=== PATIENT | male | born 1955 | race Caucasian/White ===

== ENCOUNTER → 2016-08-20 | Outpatient (CLI) | payer BC, OTHER ==
[~2016-08-20] MED LIST: /MOXI40TA; /QUIN10TA; ALLOPURINAL; BACT800T; KEFLEX; METF500T4; METO50TA4; PERC7.5T8; PRED10TA2; VICO5TAB; ZYLO300T
== END ==
LOC: M LAB 06:11
PROVIDERS: ATTEND Nurse Practitioner Adult Health
DX: Z85.46 Personal history of malignant neoplasm of prostate (principal)

== ENCOUNTER → 2016-11-21 | Outpatient (CLI) | payer BC, OTHER ==
[2016-11-21 06:47] LABS: MEAN CORPUSCULAR HEMOGLOBIN 34.8 pg (27.0-33.0); MEAN CORPUSCULAR HGB CONC 34.9 g/dl (32.0-36.5); MEAN CORPUSCULAR VOLUME 99.6 fl (80.0-96.0); RED CELL DISTRIBUTION WIDTH 13.5 % (11.5-14.5); WHITE BLOOD COUNT 4.6 K/mm3 (4.0-10.0)
[2016-11-21 07:21] LABS: ALBUMIN 4.1 GM/DL (3.2-5.2); ALBUMIN/GLOBULIN RATIO 1.32 (1.00-1.93); ALKALINE PHOSPHATASE 68 U/L (45-117); ALT/SGPT 31 U/L (12-78); ANION GAP 5 MEQ/L (8-16); AST/SGOT 21 U/L (15-37); BILIRUBIN,TOTAL 0.3 MG/DL (0.2-1.0); BLOOD UREA NITROGEN 23 MG/DL (7-18); CALCIUM LEVEL 9.1 MG/DL (8.8-10.2); CARBON DIOXIDE LEVEL 30 MEQ/L (21-32); CHLORIDE LEVEL 107 MEQ/L (98-107); CHOLESTEROL LEVEL 218 MG/DL (<200); CREATININE FOR GFR 1.29 MG/DL (0.70-1.30); FREE T4 0.84 NG/DL (0.76-1.46); GLOMERULAR FILTRATION RATE > 60.0 (>49); GLUCOSE, FASTING 96 MG/DL (80-110); SODIUM LEVEL 142 MEQ/L (136-145); TOTAL PROTEIN 7.2 GM/DL (6.4-8.2); TRIGLYCERIDES LEVEL 375 MG/DL (<150); URIC ACID 5.3 MG/DL (3.5-7.2)
== END ==
LOC: M LAB 06:15
PROVIDERS: ATTEND Family Medicine
DX: E03.9 Hypothyroidism, unspecified (principal); M10.9 Gout, unspecified; I10 Essential (primary) hypertension

== ENCOUNTER → 2017-02-21 | Outpatient (CLI) | payer BC, OTHER | LOC: M LAB 05:58 | PROVIDERS: ATTEND Nurse Practitioner Adult Health | DX: Z85.46 Personal history of malignant neoplasm of prostate (principal) ==

== ENCOUNTER → 2018-02-05 | Outpatient (CLI) | payer BC, OTHER ==
[2018-02-05 07:23] LABS: BASO % 0.6 % (0.0-1.0); EOS # 0.3 10^3/uL (0.0-0.50); EOS % 4.9 % (0.0-3.0); HEMATOCRIT 41.2 % (42.0-52.0); HEMOGLOBIN 14.1 g/dl (13.5-17.5); IMMATURE GRANULOCYTE % 0.6 % (0-3.0); LYMPH # 2.9 10^3/uL (1.5-4.5); LYMPH % 44.2 % (24.0-44.0); MEAN CORPUSCULAR HEMOGLOBIN 33.8 pg (27.0-33.0); MEAN CORPUSCULAR HGB CONC 34.2 g/dl (32.0-36.5); MEAN CORPUSCULAR VOLUME 98.8 fl (80.0-96.0); MONO # 0.6 10^3/uL (0.0-0.8); MONO % 8.9 % (0.0-5.0); NEUTROPHILS # 2.6 10^3/uL (1.8-7.7); NEUTROPHILS % 40.8 % (36.0-66.0); PLATELET COUNT, AUTOMATED 186 10^3/uL (150-450); RED BLOOD COUNT 4.17 10^6/uL (4.30-6.10); RED CELL DISTRIBUTION WIDTH 12.6 % (11.5-14.5); WHITE BLOOD COUNT 6.5 10^3/uL (4.0-10.0)
[2018-02-05 07:56] LABS: ALBUMIN 4.2 GM/DL (3.2-5.2); ALBUMIN/GLOBULIN RATIO 1.31 (1.00-1.93); ALKALINE PHOSPHATASE 64 U/L (45-117); ALT/SGPT 48 U/L (12-78); ANION GAP 8 MEQ/L (8-16); AST/SGOT 29 U/L (7-37); BILIRUBIN,TOTAL 0.5 MG/DL (0.2-1.0); BLOOD UREA NITROGEN 22 MG/DL (7-18); CARBON DIOXIDE LEVEL 28 MEQ/L (21-32); CHLORIDE LEVEL 106 MEQ/L (98-107); CHOLESTEROL LEVEL 144 MG/DL (<200); CHOLESTEROL RISK RATIO 2.571 (<5); CREATININE FOR GFR 1.32 MG/DL (0.70-1.30); FREE T3 3.5 PG/ML (2.2-4.0); FREE T4 0.97 NG/DL (0.76-1.46); GLOMERULAR FILTRATION RATE 58.5 (>49); GLUCOSE, FASTING 97 MG/DL (70-100); HDL CHOLESTEROL 56 MG/DL (>40); LDL CHOLESTEROL 51 MG/DL (<100); NON-HDL-C 88 MG/DL; POTASSIUM SERUM 4.2 MEQ/L (3.5-5.1); SODIUM LEVEL 142 MEQ/L (136-145); TOTAL PROTEIN 7.4 GM/DL (6.4-8.2); TRIGLYCERIDES LEVEL 187 MG/DL (<150)
== END ==
LOC: M LAB 06:22
DX: E03.9 Hypothyroidism, unspecified (principal); I10 Essential (primary) hypertension; M10.9 Gout, unspecified
CPT/HCPCS: 84443

== ENCOUNTER → 2018-04-09 | Outpatient (CLI) | payer BC, OTHER ==
[2018-04-09 07:33] LABS: PROSTATIC SPECIFIC AG MONITOR < 0.0 NG/ML (< 4.0)
== END ==
LOC: M LAB 06:26
DX: Z08 Encounter for follow-up examination after completed treatment for malignant neoplasm (principal); Z85.46 Personal history of malignant neoplasm of prostate
CPT/HCPCS: 84153

== ENCOUNTER → 2018-10-20 | Outpatient (CLI) | payer BC, OTHER ==
[~2018-10-20] MED LIST changes: -/MOXI40TA; -/QUIN10TA; +ACCU1TAB; +AVEL1TAB2; +LEVO75TA4 PO; +LISI10TA4 PO; +MULT1TAB10 PO; +PRAV40TA2 PO; +VITA500T PO; +ZYLO300T6 PO
== END ==
LOC: M LAB 06:21
PROVIDERS: ATTEND Nurse Practitioner Adult Health
DX: Z85.46 Personal history of malignant neoplasm of prostate (principal)

== ENCOUNTER → 2019-04-21 | Outpatient (CLI) | payer BC, OTHER | LOC: M LAB 07:26 | PROVIDERS: ATTEND Nurse Practitioner Adult Health | DX: Z85.46 Personal history of malignant neoplasm of prostate (principal) ==

== ENCOUNTER → 2019-04-30 | Outpatient (CLI) | payer BC, OTHER ==
[2019-04-30 06:38] LABS: HEMATOCRIT 39.1 % (42.0-52.0); MEAN CORPUSCULAR HGB CONC 33.2 g/dl (32.0-36.5); MEAN CORPUSCULAR VOLUME 102.4 fl (80.0-96.0); PLATELET COUNT, AUTOMATED 141 10^3/uL (150-450); RED BLOOD COUNT 3.82 10^6/uL (4.30-6.10); WHITE BLOOD COUNT 4.5 10^3/uL (4.0-10.0)
[2019-04-30 07:15] LABS: ALBUMIN 3.8 GM/DL (3.2-5.2); ALT/SGPT 134 U/L (12-78); BILIRUBIN,TOTAL 0.4 MG/DL (0.2-1.0); BLOOD UREA NITROGEN 23 MG/DL (7-18); CALCIUM LEVEL 8.2 MG/DL (8.8-10.2); CARBON DIOXIDE LEVEL 25 MEQ/L (21-32); CHLORIDE LEVEL 108 MEQ/L (98-107); CHOLESTEROL LEVEL 133 MG/DL (<200); CREATININE FOR GFR 1.15 MG/DL (0.70-1.30); FREE T3 3.2 PG/ML (2.2-4.0); FREE T4 1.07 NG/DL (0.76-1.46); GLOMERULAR FILTRATION RATE > 60.0 (>49); GLUCOSE, FASTING 99 MG/DL (70-100); HDL CHOLESTEROL 61 MG/DL (>40); LDL CHOLESTEROL 51 MG/DL (<100); NON-HDL-C 72 MG/DL; POTASSIUM SERUM 3.9 MEQ/L (3.5-5.1); SODIUM LEVEL 141 MEQ/L (136-145); TOTAL PROTEIN 6.5 GM/DL (6.4-8.2); TRIGLYCERIDES LEVEL 103 MG/DL (<150); URIC ACID 5.1 MG/DL (3.5-7.2)
== END ==
LOC: M LAB 06:08
PROVIDERS: ATTEND Family Medicine
DX: E03.9 Hypothyroidism, unspecified (principal)

== ENCOUNTER → 2019-05-10 | Outpatient (CLI) | payer BC, OTHER ==
--- NOTE | 2019-05-10 15:02 | REP ---
Right upper quadrant sonography: History: Increased liver function studies. Comparison study: No comparison study. Findings: Scanning through the right upper quadrant of the abdomen demonstrates a normal sized, thin-walled gallbladder without evidence of stone or polyp. Common bile duct is normal measuring 0.3 cm in greatest diameter. No focal liver lesion is seen. There is evidence of fatty infiltration of the liver. Liver size is normal. No pancreatic abnormality is observed. No right renal abnormality is seen. There is no evidence of ascites. The right kidney measures 11.3 by 6.8 x 6.4 cm. Impression: There is evidence of fatty infiltration of the liver. Otherwise negative right upper quadrant sonography. Electronically Signed by Elmer Dupree MD 05/10/2019 07:56 A
== END ==
LOC: M RAD 07:31
PROVIDERS: ATTEND Family Medicine
DX: R74.0 Nonspecific elevation of levels of transaminase and lactic acid dehydrogenase [LDH] (principal)

== ENCOUNTER → 2019-10-27 | Outpatient (CLI) | payer BC, OTHER ==
[~2019-10-27] MED LIST changes: +VITA-243 PO; -VITA500T PO
== END ==
LOC: M LAB 06:08
PROVIDERS: ATTEND Nurse Practitioner Adult Health
DX: Z85.46 Personal history of malignant neoplasm of prostate (principal)

== ENCOUNTER → 2019-11-04 | Outpatient (CLI) | payer BC, OTHER ==
[2019-11-04 07:19] LABS: ALT/SGPT 39 U/L (12-78); BILIRUBIN,DIRECT 0.1 MG/DL (0.0-0.2); BILIRUBIN,TOTAL 0.4 MG/DL (0.2-1.0); FERRITIN 623 NG/ML (26-388); IRON (FE) 104 UG/DL (65-175); PERCENT SATURATION 35.6 % (19.7-50.0); TOTAL IRON BINDING CAPACITY 292 UG/DL (250-450); TOTAL PROTEIN 7.5 GM/DL (6.4-8.2)
[2019-11-05 09:18] LABS: HEPATITIS B SURFACE ANTIBODY POSITIVE (POSITIVE)
[2019-11-05 09:29] LABS: HEPATITIS B SURFACE ANTIGEN NEGATIVE (NEGATIVE)
[2019-11-05 09:58] LABS: HEPATITIS B CORE ANTIBODY IGM NEGATIVE (NEGATIVE); HEPATITIS C VIRUS ABY INDEX 0.2 INDEX (<0.8)
== END ==
LOC: M LAB 06:17
PROVIDERS: ATTEND Family Medicine
DX: R74.0 Nonspecific elevation of levels of transaminase and lactic acid dehydrogenase [LDH] (principal); I10 Essential (primary) hypertension

== ENCOUNTER 2020-11-01 06:19 | Emergency (ER) | payer BC, OTHER ==
[~2020-11-01 06:19] MED LIST changes: +LISI10TA22 PO; -LISI10TA4 PO
[2020-11-01 06:27] VITALS: BP 135/84
[2020-11-01] MEDS ORDERED: NS 1,000 ML IV ONE (08:00)
[2020-11-01 08:34] LABS: BASO % 0.4 % (0.0-1.0); EOS # 0.1 10^3/uL (0.0-0.5); EOS % 0.6 % (0.0-3.0); HEMATOCRIT 42.9 % (42.0-52.0); HEMOGLOBIN 14.2 g/dl (13.5-17.5); LYMPH # 1.2 10^3/uL (1.5-5.0); LYMPH % 11.2 % (24.0-44.0); MEAN CORPUSCULAR HEMOGLOBIN 34.1 pg (27.0-33.0); MEAN CORPUSCULAR HGB CONC 33.1 g/dl (32.0-36.5); MEAN CORPUSCULAR VOLUME 103.1 fl (80.0-96.0); MONO % 13.9 % (2.0-8.0); NEUTROPHILS % 73.3 % (36.0-66.0); PLATELET COUNT, AUTOMATED 205 10^3/uL (150-450); RED BLOOD COUNT 4.16 10^6/uL (4.30-6.10)
[2020-11-01] MEDS ORDERED: KETOROLAC 30 MG/ML 1ML VIAL IV ONE (09:00)
[2020-11-01 09:04] LABS: ALBUMIN 4.5 GM/DL (3.2-5.2); BILIRUBIN,DIRECT 0.3 MG/DL (0.0-0.2); BILIRUBIN,TOTAL 1.4 MG/DL (0.2-1.0)
[2020-11-01] MEDS ORDERED: ISOVUE-370 76% 100ML VIAL As Ordered ONE (09:06)
[2020-11-01 09:07] LABS: WHITE BLOOD COUNT 10.9 10^3/uL (4.0-10.0)
[2020-11-01 09:08] LABS: MONO # 1.5 10^3/uL (0.0-0.8)
--- NOTE | 2020-11-01 09:41 | REP ---
INDICATION: LLQ pain, h/o diverticulitis s/p bowel resection. COMPARISON: None TECHNIQUE: Axial contrast-enhanced images from the lung bases to the pubic symphysis using 100 cc Isovue 370 intravenous contrast material. Coronal and sagittal reformations obtained. This CT examination was performed using the following dose reduction techniques: Automated exposure control, adjustment of mA and/or kv according to the patient's size, and the use of iterative reconstruction technique. FINDINGS: Liver demonstrates mild fatty infiltration without focal hepatic lesion. Spleen, pancreas, gallbladder, bilateral adrenal glands and kidneys are normal. Mucosal thickening and inflammatory stranding surrounding diverticula at the proximal descending colon with stranding and small amount of fluid along the pericolic gutter consistent with acute diverticulitis (series 201; images 80-104). No evidence for bowel perforation or obstruction. No drainable collection/abscess. Evidence for prior partial sigmoid resection. Pelvis demonstrates normal bladder and findings to suggest prior prostate surgery. No ascites. No free air. No intraperitoneal or retroperitoneal adenopathy. Abdominal aorta and vasculature appear normal. Musculoskeletal structures are intact and without acute osseous abnormality. IMPRESSION: 1. Acute diverticulitis involving the proximal descending colon. <Electronically signed by Chin Rodriugez > 11/01/20 0904
[2020-11-01] MEDS ORDERED: AUGM875T28 PO (11:10)
[2020-11-01] MEDS ORDERED: KETO10TAB PO (11:17)
== END 2020-11-01 12:29 | disposition home or self-care (01) ==
LOC: M ED 06:19
DX: K57.32 Diverticulitis of large intestine without perforation or abscess without bleeding (principal); Z88.1 Allergy status to other antibiotic agents; Z88.2 Allergy status to sulfonamides; Z88.6 Allergy status to analgesic agent; Z90.49 Acquired absence of other specified parts of digestive tract
CPT/HCPCS: 74177; 80047; 80076; 81001; 82150; 83605; 83690; 85025; 96361; 96374; 99284; J1885; Q9967

== ENCOUNTER → 2020-11-02 | Outpatient (CLI) | payer BC, OTHER ==
[~2020-11-02] MED LIST changes: +AUGM875T28 PO; +KETO10TAB PO
[2020-11-02 07:21] LABS: HEMATOCRIT 39.9 % (42.0-52.0); HEMOGLOBIN 12.9 g/dl (13.5-17.5); MEAN CORPUSCULAR HEMOGLOBIN 33.8 pg (27.0-33.0); MEAN CORPUSCULAR HGB CONC 32.3 g/dl (32.0-36.5); MEAN CORPUSCULAR VOLUME 104.5 fl (80.0-96.0); PLATELET COUNT, AUTOMATED 192 10^3/uL (150-450); RED BLOOD COUNT 3.82 10^6/uL (4.30-6.10); WHITE BLOOD COUNT 8.4 10^3/uL (4.0-10.0)
[2020-11-02 07:57] LABS: ALBUMIN 3.7 GM/DL (3.2-5.2); ALT/SGPT 43 U/L (12-78); BILIRUBIN,TOTAL 1.4 MG/DL (0.2-1.0); BLOOD UREA NITROGEN 24 MG/DL (7-18); CARBON DIOXIDE LEVEL 27 MEQ/L (21-32); CHLORIDE LEVEL 107 MEQ/L (98-107); CHOLESTEROL LEVEL 123 MG/DL (<200); CHOLESTEROL RISK RATIO 1.892 (<5); CREATININE FOR GFR 1.19 MG/DL (0.70-1.30); FREE T3 2.5 PG/ML (2.2-4.0); FREE T4 1.11 NG/DL (0.76-1.46); GLOMERULAR FILTRATION RATE > 60.0 (>49); GLUCOSE, FASTING 115 MG/DL (70-100); HDL CHOLESTEROL 65 MG/DL (>40); LDL CHOLESTEROL 43 MG/DL (<100); NON-HDL-C 58 MG/DL; POTASSIUM SERUM 4.3 MEQ/L (3.5-5.1); SODIUM LEVEL 140 MEQ/L (136-145); THYROID STIMULATING HORMONE 0.328 uIU/ML (0.358-3.740); TOTAL PROTEIN 6.9 GM/DL (6.4-8.2); TRIGLYCERIDES LEVEL 77 MG/DL (<150)
== END ==
LOC: M LAB 06:39
PROVIDERS: ATTEND Family Medicine
DX: E03.9 Hypothyroidism, unspecified (principal)

== ENCOUNTER → 2020-12-20 | Outpatient (CLI) | payer MEDICARE, BC, OTHER | LOC: M LAB 06:43 | PROVIDERS: ATTEND Nurse Practitioner Adult Health | DX: Z85.46 Personal history of malignant neoplasm of prostate (principal) ==

== ENCOUNTER → 2020-12-23 | Outpatient (CLI) | payer MEDICARE, BC, OTHER ==
[2020-12-23 09:16] LABS: BASO % 0.9 % (0.0-1.0); EOS # 0.2 10^3/uL (0.0-0.5); EOS % 4.5 % (0.0-3.0); HEMATOCRIT 40.3 % (42.0-52.0); HEMOGLOBIN 13.4 g/dl (13.5-17.5); LYMPH # 2.1 10^3/uL (1.5-5.0); LYMPH % 45.4 % (24.0-44.0); MEAN CORPUSCULAR HEMOGLOBIN 33.8 pg (27.0-33.0); MEAN CORPUSCULAR HGB CONC 33.3 g/dl (32.0-36.5); MEAN CORPUSCULAR VOLUME 101.5 fl (80.0-96.0); MONO # 0.7 10^3/uL (0.0-0.8); MONO % 13.9 % (2.0-8.0); NEUTROPHILS # 1.6 10^3/uL (1.5-8.5); NEUTROPHILS % 34.2 % (36.0-66.0); PLATELET COUNT, AUTOMATED 209 10^3/uL (150-450); RED BLOOD COUNT 3.97 10^6/uL (4.30-6.10); WHITE BLOOD COUNT 4.7 10^3/uL (4.0-10.0)
[2020-12-23 09:27] LABS: ALBUMIN 3.4 GM/DL (3.2-5.2); ALT/SGPT 35 U/L (12-78); BILIRUBIN,TOTAL 0.4 MG/DL (0.2-1.0); BLOOD UREA NITROGEN 14 MG/DL (7-18); CALCIUM LEVEL 8.9 MG/DL (8.8-10.2); CARBON DIOXIDE LEVEL 29 MEQ/L (21-32); CHLORIDE LEVEL 107 MEQ/L (98-107); CREATININE FOR GFR 0.93 MG/DL (0.70-1.30); GLOMERULAR FILTRATION RATE > 60.0 (>49); GLUCOSE, FASTING 100 MG/DL (70-100); LIPASE 217 U/L (73-393); POTASSIUM SERUM 4.1 MEQ/L (3.5-5.1); SODIUM LEVEL 142 MEQ/L (136-145)
== END ==
LOC: M LAB 08:14
PROVIDERS: ATTEND Family Medicine
DX: K57.90 Diverticulosis of intestine, part unspecified, without perforation or abscess without bleeding (principal)

== ENCOUNTER → 2021-01-01 | Outpatient (CLI) | payer MEDICARE, BC, OTHER ==
[~2021-01-01] MED LIST changes: +GASTROGRAFIN SOLUTION 30ML (Q9963) ONE; +ISOVUE-370 76% 100ML VIAL ONE
--- NOTE | 2021-01-01 15:56 | REP ---
INDICATION: DIVERTICULOSIS. History of diverticulitis. Left lower quadrant pain. COMPARISON: None. TECHNIQUE: Scans were obtained during contrast administration. FINDINGS: Lower lungs are clear. Mild bilateral pleural thickening. Hiatal hernia. Liver normal size and attenuation. No mass or biliary tract dilatation. Gallbladder fluid filled events of gallstone. Pancreas normal size and attenuation. No evidence of mass or inflammatory change. Spleen normal size and attenuation. Adrenal glands not enlarged. Right kidney unremarkable. Left kidney several small cysts. No retroperitoneal or mesenteric adenopathy. Postoperative changes after sigmoid resection. Focal area of inflammatory change just proximal to the suture line in the sigmoid colon consistent with small focal area of diverticulitis. No free fluid or air. IMPRESSION: Small area of inflammatory change in the pelvis adjacent to the sigmoid colon just proximal to resection site after sigmoid resection. Findings are consistent with a small area of acute diverticulitis. No evidence of abscess. <Electronically signed by Cristofer Hernandez > 01/01/21 1236
== END ==
LOC: M PLAIMG 12:53
PROVIDERS: ATTEND Family Medicine
DX: K57.90 Diverticulosis of intestine, part unspecified, without perforation or abscess without bleeding (principal)
CPT/HCPCS: 74177; Q9963; Q9967

== ENCOUNTER 2021-03-22 07:31 | Emergency (ER) | payer MEDICARE, BC, OTHER ==
[~2021-03-22] VITALS: Ht 182.9 cm; Wt 109.1 kg
[~2021-03-22 07:31] MED LIST changes: -GASTROGRAFIN SOLUTION 30ML (Q9963) ONE; -ISOVUE-370 76% 100ML VIAL ONE
--- OUTSIDE RECORDS SUMMARY | 2021-03-22 07:39 | CCD ---
Author Author [facility] Organization [facility] Address Unknown Phone Unavailable Support Name Relationship Address Phone RETIRED Next Of Kin Unknown Unavailable WALKERS [employer]UFACTURED HOMES Next Of Kin [address] [facility] [address] [place] [address] ANSON GRAHAM Next Of Kin [id number] [address] RE Next Of Kin Unknown Unavailable VILLAVICENCIOANSON [place] [address] [place] [address] MARY [place] [address] [place] Next [place] [address] [place] [address] [place] [address] ANSON GRAHAM ECON [address] [address] [phone] Re-disclosure Warning The records that you are about to access may contain information from federally-assisted alcohol or drug abuse programs. If such information is present, then the following federally mandated warning applies: This information has been disclosed to you from records protected by federal confidentiality rules (42 CFR part 2). The federal rules prohibit you from making any further disclosure of this information unless further disclosure is expressly permitted by the written consent of the person to whom it pertains or as otherwise permitted by 42 CFR part 2. A general authorization for the release of medical or other information is NOT sufficient for this purpose. The Federal rules restrict any use of the information to criminally investigate or prosecute any alcohol or drug abuse patient.The records that you are about to access may contain highly sensitive health information, the redisclosure of which is protected by Article 27-F of the [place] State Public Health law. If you continue you may have access to information: Regarding HIV / AIDS; Provided by facilities licensed or operated by the [facility] Office of Mental Health; or Provided by the [facility] Office for People With Developmental Disabilities. If such information is present, then the following [facility] mandated warning applies: This information has been disclosed to you from confidential records which are protected by state law. State law prohibits you from making any further disclosure of this information without the specific written consent of the person to whom it pertains, or as otherwise permitted by law. Any unauthorized further disclosure in violation of state law may result in a fine or detention sentence or both. A general authorization for the release of medical or other information is NOT sufficient authorization for further disc losure. Family History Family Member Name Family Member Gender Family Member Status Date o f Status Description Data Source(s) Unknown Unknown Problem [facility] ([facility]) Unknown Unknown Problem [facility] ([facility] mother Unknown Male Problem [facility] ([facility]) Unknown Unknown Problem [facility] ([facility] Unknown Unknown Problem [facility] ([facility]) Medications Medication Brand Name Start Date Product Form Dose Route Admi nistrative Instructions Pharmacy Instructions Status Indications Reaction Description Data Source(s) 75 mcg 02/01/2021 12:00:00 AM EDT tablet 90 TAKE ONE TABLET BY MOUTH EVERY DAY TAKE ONE TABLET BY MOUTH EVERY DAY SOLD: 02/02/2021 [facility] 40 mg 01/22/2021 12:00:00 AM EDT tablet 90 TAKE ONE TABLET BY MOUTH EVERY DAY TAKE ONE TABLET BY MOUTH EVERY DAY SOLD: 01/23/2021 [facility] 10 mg 12/30/2020 12:00:00 AM EDT tablet 90 TAKE ONE TABLET BY MOUTH EVERY DAY TAKE ONE TABLET BY MOUTH EVERY DAY SOLD: 01/02/2021 [facility] Amoxicillin 875 MG / Clavulanate 125 MG Oral Tablet 87 5-125 mg AMOXICILLIN/POTASSIUM CLAV 12/21/2020 12:00:00 AM EDT tablet 14 TAKE ONE TABLET BY MOUTH EVERY 12 HOURS FOR 7 DAYS TAKE ONE TABLET BY MOUTH EVERY 12 HOURS FOR 7 DAYS SOLD: 12/21/2020 [facility] 300 mg 12/20/2020 12:00:00 AM EDT tablet 90 TAKE ONE TABLET BY MOUTH EVERY DAY TAKE ONE TABLET BY MOUTH EVERY DAY SOLD: 12/20/2020 [facility] 300 mg 12/20/2020 12:00:00 AM EDT tablet 90 TAKE ONE TABLET BY MOUTH EVERY DAY TAKE ONE TABLET BY MOUTH EVERY DAY SOLD: 03/19/2021 [facility] Amoxicillin 875 MG / Clavulanate 125 MG Oral Tablet 87 5-125 mg AMOXICILLIN/POTASSIUM CLAV 11/28/2020 12:00:00 AM EDT tablet 14 TAKE ONE TABLET BY MOUTH EVERY 12 HOURS TAKE ONE TABLET BY MOUTH EVERY 12 HOURS SOLD: 11/28/2020 [facility] Metronidazole 500 MG Oral Tablet METRONIDAZOLE 11/28/2020 12:0 0:00 AM EDT tablet 21 TAKE ONE TABLET BY MOUTH THREE T IMES A DAY FOR 7 DAYS TAKE ONE TABLET BY MOUTH THREE TIMES A DAY FOR 7 DAYS SOLD: 11/28/2020 [facility] Amoxicillin 875 MG / Clavulanate 125 MG Oral Tablet 87 5-125 mg AMOXICILLIN/POTASSIUM CLAV 11/01/2020 12:00:00 AM EDT tablet 30 TAKE ONE TABLET BY MOUTH THREE TIMES A DAY TAKE ONE TABLET BY MOUTH THREE TIMES A DAY SOLD: 11/01/2020 [facility] 10 mg 11/01/2020 12:00:00 AM EDT tablet 10 TAKE ONE TABLET BY MOUTH THREE TIMES A DAY NEEDED FOR PAIN OR FEVER TAKE ONE TABLET BY MOUTH THREE TIMES A DAY NEEDED FOR PAIN OR FEVER SOLD: 11/01/2020 [facility] 10 mg 10/04/2020 12:00:00 AM EDT tablet 90 TAKE ONE TABLET BY MOUTH EVERY DAY TAKE ONE TABLET BY MOUTH EVERY DAY SOLD: 10/05/2020 [facility] 40 mg 09/20/2020 12:00:00 AM EDT tablet 90 TAKE ONE TABLET BY MOUTH EVERY DAY TAKE ONE TABLET BY MOUTH EVERY DAY SOLD: 09/28/2020 [facility] Cyclobenzaprine hydrochloride 10 MG Oral Tablet CYCLOBENZAPR INE HCL 08/31/2020 12:00:00 AM EDT tablet 10 TAKE ONE TABLET BY MOUTH AT BEDTIME NEEDED TAKE ONE TABLET BY MOUTH AT BEDTIME NEEDED SOLD: 08/31/2020 [facility] 20 mg 08/31/2020 12:00:00 AM EDT tablet 21 TAKE 1 TABLET BY MOUTH DIRECTED ON TAPER TAKE 1 TABLET BY MOUTH DIRECTED ON TAPER SOLD: 08/31/2020 [facility] 20 mg 08/21/2020 12:00:00 AM EDT tablet 10 TAKE ONE TABLET BY MOUTH TWO TIMES A DAY FOR 5 DAYS TAKE ONE TABLET BY MOUTH TWO TIMES A DAY FOR 5 DAYS SO LD: 08/21/2020 [facility] 75 mcg 08/08/2020 12:00:00 AM EDT tablet 90 TAKE ONE TABLET BY MOUTH EVERY DAY TAKE ONE TABLET BY MOUTH EVERY DAY SOLD: 11/06/2020 [facility] 75 mcg 08/08/2020 12:00:00 AM EDT tablet 90 TAKE ONE TABLET BY MOUTH EVERY DAY TAKE ONE TABLET BY MOUTH EVERY DAY SOLD: 08/09/2020 [facility] 875-125 mg 08/02/2020 12:00:00 AM EST tablet 14 TAKE ONE TABLET BY MOUTH EVERY 12 HOURS FOR 7 DAYS TAKE ONE TABLET BY MOUTH EVERY 12 HOURS FOR 7 DAYS SOLD: 08/03/2020 [facility] 10 mg 05/29/2020 12:00:00 AM EST tablet 90 TAKE ONE TABLET BY MOUTH EVERY DAY TAKE ONE TABLET BY MOUTH EVERY DAY SOLD: 05/30/2020 [facility] 300 mg 05/17/2020 12:00:00 AM EST tablet 90 TAKE ONE TABLET BY MOUTH EVERY DAY TAKE ONE TABLET BY MOUTH EVERY DAY SOLD: 05/17/2020 [facility] 75 mcg 04/06/2020 12:00:00 AM EST tablet 90 TAKE ONE TABLET BY MOUTH EVERY DAY TAKE ONE TABLET BY MOUTH EVERY DAY SOLD: 04/11/2020 [facility] 10 mg 11/29/2019 12:00:00 AM EDT tablet 90 TAKE ONE TABLET BY MOUTH EVERY DAY TAKE ONE TABLET BY MOUTH EVERY DAY SOLD: 03/01/2020 [facility] 300 mg 11/18/2019 12:00:00 AM EDT tablet 90 TAKE ONE TABLET BY MOUTH EVERY DAY TAKE ONE TABLET BY MOUTH EVERY DAY SOLD: 02/20/2020 [facility] 40 mg 11/18/2019 12:00:00 AM EDT tablet 90 TAKE ONE TABLET BY MOUTH EVERY DAY TAKE ONE TABLET BY MOUTH EVERY DAY SOLD: 06/22/2020 [facility] Insurance Providers Payer name Policy type / Coverage type Policy ID Covered alliance party ID Covered alliance party's relationship to jha Policy Jha Plan Information State Ins Fund () Workers Compensation [id number] Self State Ins Fund () Workers Compensation [id number] Self UNITED HE[employer]CARE [id number] SP [id number] UNITED HEALTHCARE [id number] SP [id number] BCBS EMPIRE LYNDA DIV [id number] SP [id number] UNITED HEALTHCARE [id number] SP [id number] D Group Health Preferred P [id number] S [id number] BCBS EMPIRE LYNDA DIV [id number] SP [id number] UNITED HEALTHCARE [id number] SP [id number] BCBS EMPIRE LYNDA DIV [id number] SP [id number] STATE INSURANCE FUND O [id number] S [id number] SELF PAY O [id number] S [place] [employer] [facility] Commercial [id number] Self [id number] [place] [employer] [facility] Commercial [id number] Self STATE INSURANCE FUND [id number] SP [id number] [facility] Commercial [id number] Self BLUE CROSS O [id number] S [id number] STATE INSURANCE FUND O [id number] S [id number] UNITED HEALTHCARE O [id number] S [id number] STATE INSURANCE FUND [id number] SP [id number] BCBS EMPIRE LYNDA DIV [id number] SP [id number] STATE INSURANCE FUND P [id number] S [id number] OTHER WORKERS COMPENSATION [id number] SP [id number] MEDICARE [id number] SP [id number] MEDICARE [id number] SP [id number] UNITED HEALTHCARE O [id number] S [id number] [employer] Commercial [id number] Self [id number] [facility] Health Maintenance Organization (HMO) [id number] Self [id number] [employer] Commercial [id number] Self [id number] [facility] Commercial [id number] Self [id number] [facility] Commercial [id number] Self [id number] [facility] Commercial [id number] [facility] Commercial [id number] Self [id number] Problems, Conditions, and Diagnoses No Information Surgeries/Procedures No Information Results ID Date Data Source [id number] 12/20/2020 09:44:00 AM EDT [facility] ([facility] Name Value Range Interpretation Code Description Data Shamika rce(s) Supporting Document(s) Prostate specific Ag [Mass/volume] in Serum or Plasma Laboratory test result [facility] ([facility]) Prostatic Specific Ag Monitor Laboratory test result [facility] ([facility]) The PSA assay is performed on the Population Diagnosticsta analyzer by LOCI sandwich chemiluminescent immunoassay and should not be compared interchangeably with other methods. It should not be used alone as a screening test or diagnosis for the presence or absence of malignant disease. Predictions of disease recurrence should not be based solely on values obtained from serial patient serum values. Procedure Social History No Information
--- OUTSIDE RECORDS SUMMARY | 2021-03-22 07:39 | CCD | Continuity of Care Document ---
Author Author [facility] Organization Unknown Address [address] [place] [address] Phone [phone] Care Team Providers Care Room Maid Name Role Phone Dave Friend M.D. AUTM Cruzito Lemus M.D. AUTM [phone] Problems Active Problems Provider Date Stress incontinence (female) (male) MARKEL Ivey [facility] Onset: 11/24/2015 Impotence of organic origin MARKEL Ivey [facility] Ons et: 11/24/2015 History of malignant neoplasm of prostate CATIE Ivey C [facility] Onset: 11/24/2015 Social History Type Date Description Comments Sex Unknown Tobacco Use Reviewed: 05/07/19 Never Smoked Cigarettes Smoking Status Reviewed: 12/27/19 Never Smoked Cigarettes ETOH Use Occ Alcohol Intake Allergies and adverse reactions Active Allergies Criticality Reaction | Severity Comments Date Bactrim Unable to assess criticality swelling 06/14/2015 Cipro Unable to assess criticality bone pain 07/21/2015 Medications Active Medications SIG Qnty Indications Ordering Provide r Date Tadalafil (Pah) 20mg Tablets take one tablet 1 hour prior to sexual activity as needed 4tabs Mauricio Roberts MD 10/26/2018 Allopurinol 300mg Tablets 1 by mouth every day Unknown Levothyroxine Sodium 75mcg Tablets 1 by mouth every day Unknown Lisinopril 10mg Tablets Unknown Pravastatin Sodium Unknown Vitamin C Unknown Immunizations Description No Information Available Vital Signs Date Vital Result Comment 12/27/2019 3:48pm Body Temperature 97.7 F Post Void Residual ml 0 Bladder Scanner, I ndication: retention 05/07/2019 2:33pm Height 72 inches 6'0" Weight 238.00 lb Weight 107.957 kg BMI (Body Mass Index) 32.3 kg/m2 BP Systolic 129 mmHg BP Diastolic 86 mmHg Heart Rate 74 /min Post Void Residual ml 0 Bladder Scanner, I ndication: Results Test Acquired Date Facility Test Result H/L Range Note Laboratory test finding 12/20/2020 [facility]) [address] [place], [place] [id number] [phone] PSA Total <0.01 Prostatic Specific Ag Monitor < 0.01 NG/ML Normal < 4.00 1 1 The PSA assay is performed o n the Siemens Dry [place]ork analyzer by LOCI sandwich chemiluminescent immunoassay and should not be compared interchangeably with other methods. It should not be used alone as a screening test or diagnosis for the presence or absence of malignant disease. Predictions of disease recurrence should not be based solely on values obtained from serial patient serum values. Procedures Date Code Description Status 12/27/2019 [id number] Colonoscopy Completed Medical Devices Description No Information Available Encounters Description No Information Available Assessments Description No Information Available Plan of Treatment 12/27/2019 - France Hayes ANP- C.U.N.P.* Z85.46 Personal history of malignant neoplasm of prostate* Comments:* History of prostate cancer post robotic prostatectomy with an undetectable PSA.Plan: Follow-up visit in 1 year with repeat PSA. * N39.3 Stress incontinence (female) (male)* Comments:* Occasional mild stress urinary incontinence. No residual bladder scan.Plan: Continue surveillance in 1 year with bladder scan. Continue pelvic floor exercises. * N52.01 Erectile dysfunction due to arterial insufficiency* Comments:* Sexual dysfunction with patient reporting he did not use tadalafil 20 mg.Plan: He did renew his prescription today and will with appropriate use tadalafil. Follow- up in 1 year. He will contact the office should he wish to change treatment options. Functional Status Description No Information Available Mental Status Description No Information Available Referrals Description No Information Available
[2021-03-22] MEDS ORDERED: ALLO300T2 (07:46)
[2021-03-22] MEDS ORDERED: ONDANSETRON 4MG/2ML VIAL IV ONE (08:05)
[2021-03-22] MEDS ORDERED: MORPHINE 2 MG/ML 1ML VIAL (J2270) IV ONE (08:05)
--- OUTSIDE RECORDS SUMMARY | 2021-03-22 08:09 | CCD ---
Author Author [facility] Organization [facility] Address Unknown Phone Unavailable Support Name Relationship Address Phone RETIRED Next Of Kin Unknown Unavailable WALKERS [employer]UFACTURED HOMES Next Of Kin [address] [facility] [address] [place] [address] ANSON GRAHAM Next Of Kin [address] [address] RE Next Of Kin Unknown Unavailable VILLAVICENCIOANSON [place] [address] [place] [address] MARY [place] [address] [place] Next [place] [address] [place] [address] [place] [address] ANSON GRAHAM ECON [address] [address] [phone] Re-disclosure Warning The records that you are [...] is protected by Article 27-F of the [place] State Public Health law. If you continue you may have access to information: Regarding HIV / AIDS; Provided by facilities licensed or operated by the [facility] Office of Mental Health; or Provided by the [facility] Office for People With Developmental Disabilities. If such information is present, then the following [facility] mandated warning applies: This information has been [...] mother Unknown Male Problem [facility] ([facility]) Unknown Unknown Problem [facility] ([facility] [...] type / Coverage type Policy ID Covered libertarian ID Covered libertarian's relationship to jha Policy Jha Plan Information State Ins Fund () Workers Compensation [id number] Self State Ins Fund () Workers Compensation [id number] Self UNITED HE[employer]CARE [id number] SP [id number] UNITED HEALTHCARE [id number] SP [id number] BCBS EMPIRE LYNDA DIV [id number] SP [id number] UNITED HEALTHCARE [id number] SP [id number] D Group Health Preferred P [id number] S [id number] BCBS EMPIRE LYNDA DIV [id number] SP [id number] UNITED HEALTHCARE [id number] SP [id number] BCBS EMPIRE LYNDA DIV [id number] SP [id number] STATE INSURANCE FUND O [id number] S [id number] SELF PAY O [id number] S [place] Plan [facility] Commercial [id number] Self [id number] [place] [employer] [facility] Commercial [id number] Self STATE INSURANCE FUND [id number] SP [id number] [facility] Commercial [id number] Self BLUE CROSS O [id number] S [id number] STATE INSURANCE FUND O [id number] S [id number] UNITED HEALTHCARE O [id number] S [id number] STATE INSURANCE FUND [id number] SP [id number] BCBS EMPIRE LYNDA DIV [id number] SP [id number] STATE INSURANCE FUND P [id number] S [id number] OTHER WORKERS COMPENSATION [id number] SP [id number] MEDICARE [id number] SP [id number] [id number] MEDICARE [id number] SP [id number] UNITED HEALTHCARE O [id number] S [id number] [employer] Commercial [id number] Self [id number] [facility] Health Maintenance Organization (HMO) [id number] Self [id number] [employer] Commercial [id number] Self [id number] [facility] Commercial [id number] Self [id number] [facility] Commercial [id number] Self [id number] [facility] Commercial [id number] Self [id number] [facility] Commercial [id number] Self [id number] Problems, Conditions, and Diagnoses No Information Surgeries/Procedures No Information Results ID Date Data Source [id number] 12/20/2020 09:44:00 AM EDT [facility] ([facility] Name Value Range Interpretation Code Description Data Shamika rce(s) Supporting Document(s) Prostate specific Ag [Mass/volume] in Serum or Plasma Laboratory test result [facility] ([facility]) Prostatic Specific Ag Monitor Laboratory test result [facility] ([facility]) The PSA assay is performed on the Newsanata analyzer by LOCI sandwich chemiluminescent immunoassay and [...]
[2021-03-22 08:42] LABS: BASO % 0.5 % (0.0-1.0); EOS # 0.1 10^3/uL (0.0-0.5); EOS % 1.2 % (0.0-3.0); HEMATOCRIT 38.2 % (42.0-52.0); HEMOGLOBIN 12.8 g/dl (13.5-17.5); LYMPH # 1.1 10^3/uL (1.5-5.0); LYMPH % 18.9 % (24.0-44.0); MEAN CORPUSCULAR HEMOGLOBIN 34.3 pg (27.0-33.0); MEAN CORPUSCULAR HGB CONC 33.5 g/dl (32.0-36.5); MEAN CORPUSCULAR VOLUME 102.4 fl (80.0-96.0); MONO # 0.7 10^3/uL (0.0-0.8); MONO % 11.8 % (2.0-8.0); NEUTROPHILS % 67.3 % (36.0-66.0); PLATELET COUNT, AUTOMATED 171 10^3/uL (150-450); RED BLOOD COUNT 3.73 10^6/uL (4.30-6.10); WHITE BLOOD COUNT 5.9 10^3/uL (4.0-10.0)
--- NOTE | 2021-03-22 09:00 | REP ---
INDICATION: trauma COMPARISON: None. TECHNIQUE: Nine views bilateral ankles. FINDINGS: A few tiny calcific densities are seen just distal to the right medial malleolus, which may represent avulsion fractures, of indeterminate age. There is associated soft tissue swelling in this region. Mild inferior calcaneal spurring bilaterally. The ankle mortise is anatomic bilaterally. IMPRESSION: Suspect avulsion fractures of the medial malleolus on the right, of indeterminate age, although there is soft tissue swelling at this location, and these may be acute. <Electronically signed by Zachary Mata > 03/22/21 0821
--- NOTE | 2021-03-22 09:05 | REP ---
INDICATION: trauma. COMPARISON: CT abdomen and pelvis 01/01/2021. TECHNIQUE: Five views lumbosacral spine. FINDINGS: There is a mild compression fracture of the L2 vertebral body. There is no evidence of significant retropulsion of fracture fragments. There is an old stable compression deformity of the T11 vertebral body. There is normal lumbar lordosis. There is mild to moderate diffuse spurring. There is mild disc space narrowing and subchondral sclerosis at L2-3, L3-4 and L5-S1. There is sclerosis and spurring at the posterior facet joints. Posterior elements appear intact. There is partial sacralization of L5 on the left. IMPRESSION: Mild compression fracture of the L2 vertebral body without evidence of retropulsed fragments radiographically. <Electronically signed by Zachary Mata > 03/22/21 0987
--- NOTE | 2021-03-22 09:09 | REP ---
INDICATION: trauma. COMPARISON: None. TECHNIQUE: AP pelvis. FINDINGS: There is no evidence of acute fracture or dislocation of the pelvic osseous structures. There are mild degenerative changes at both hips and sacroiliac joints. IMPRESSION: No acute fracture or dislocation. <Electronically signed by Zachary Mata > 03/22/21 0981
--- NOTE | 2021-03-22 09:10 | REP ---
INDICATION: trauma COMPARISON: None. TECHNIQUE: Two views bilateral calcanei. FINDINGS: There is no evidence of acute fracture, dislocation, or intrinsic bone disease.There is mild bilateral inferior calcaneal spurring. IMPRESSION: No fracture or dislocation. <Electronically signed by Zachary Mata > 03/22/21 [id number]
[2021-03-22 10:17] LABS: BLOOD UREA NITROGEN 19 MG/DL (7-18); CALCIUM LEVEL 9.4 MG/DL (8.8-10.2); CARBON DIOXIDE LEVEL 24 MEQ/L (21-32); CHLORIDE LEVEL 107 MEQ/L (98-107); CREATININE FOR GFR 1.08 MG/DL (0.70-1.30); GLOMERULAR FILTRATION RATE > 60.0 (>49); GLUCOSE, FASTING 98 MG/DL (70-100); POTASSIUM SERUM 4.9 MEQ/L (3.5-5.1); SODIUM LEVEL 138 MEQ/L (136-145)
--- NOTE | 2021-03-22 11:14 | REP ---
INDICATION: trauma. COMPARISON: CT abdomen pelvis 01/01/2021, radiographs today. TECHNIQUE: Axial CT lumbar spine performed with sagittal and coronal reconstruction images. FINDINGS: There is mild compression fracture of the L2 vertebral body. There is no significant retropulsion of fragments. The posterior elements are not involved. No other fracture or dislocation is seen. The lumbar vertebral bodies are well aligned. There is mild disc space narrowing and vacuum phenomenon at L2-3. There is mild narrowing at L5-S1 disc space. There is a Schmorl's node at the inferior endplate of L1. There is mild diffuse disc bulging at L2-3, L3-4 and L4-5. There is moderate foraminal narrowing on the left at L2-3 and L3-4. there is mild bilateral foraminal narrowing at L4-5. There is partial sacralization of L5 on the left. IMPRESSION: Mild compression fracture of L2 vertebral body with no significant retropulsion of fragments. <Electronically signed by Zachary Mata > 03/22/21 [id number]
--- NOTE | 2021-03-22 12:39 | ER ---
ER CONSULTATION DATE: 03/22/2021 CHIEF COMPLAINT: L2 compression fracture and right ankle medial malleolus avulsion fracture. HISTORY OF PRESENT ILLNESS: I was called today by Dr. Reyes, 03/22/2021 at 9:30 a.m., for this patient. Per provider, they fell yesterday at 4 p.m. Fell onto his right foot. Has back pain, difficulties ambulating. PHYSICAL EXAMINATION: Revealed closed, neurovascularly intact injury on the right ankle as well as neurologically intact in the lower extremities per the provider. Radiographs of the lumbosacral spine demonstrates per the radiologist mild compression fracture of the L2 vertebral body without evidence of retropulsed fragments radiographically. Ankle x-rays were taken bilateral. Suspect avulsion fracture of the medial malleolus on the right of indeterminate age, although there is soft tissue swelling at this location, and this may be acute. ASSESSMENT AND PLAN: This 65-year-old man has an indeterminate age medial malleolus avulsion fracture. This is a stable injury. Recommend nonoperative management, rest, ice, elevation, weightbearing as tolerated. Splint for the lower extremity or orthosis boot as needed and physical therapy. Per the provider, they are unable to cope and ambulate as an outpatient; therefore, they will be admitted to the hospitalist service. I recommend that they consult spine surgeon to asses and manage the compression fracture in the lumbar spine, as I do not have privileges to assess, manage, or treat spine issues. I am happy to see the patient as an outpatient for their avulsion medial malleolus ankle injury.
[2021-03-22 12:52] LABS: RSV AMPLIFICATION NEGATIVE (NEGATIVE)
[2021-03-22 13:15] VITALS: BP 172/92
== END 2021-03-22 13:40 | disposition short-term general hospital (02) ==
LOC: M ED 07:31
DX: S32.020A Wedge compression fracture of second lumbar vertebra, initial encounter for closed fracture (principal); S82.51XA Displaced fracture of medial malleolus of right tibia, initial encounter for closed fracture; M51.46 Schmorl's nodes, lumbar region; W11.XXXA Fall on and from ladder, initial encounter; Y92.099 Unspecified place in other non-institutional residence as the place of occurrence of the external cause; Y93.9 Activity, unspecified; Y99.9 Unspecified external cause status; I10 Essential (primary) hypertension; Z79.899 Other long term (current) drug therapy; Z88.2 Allergy status to sulfonamides; Z88.1 Allergy status to other antibiotic agents; Z88.5 Allergy status to narcotic agent
CPT/HCPCS: 72110; 72131; 72170; 73610; 73650; 80048; 85025; 87631; 93041; 94760; 96374; 96375; 99285; J2270; J2405

== ENCOUNTER → 2021-05-17 | Outpatient (CLI) | payer MEDICARE, BC, OTHER ==
[~2021-05-17] MED LIST changes: +ALLO300T2
[2021-05-17 07:11] LABS: HEMATOCRIT 39.8 % (42.0-52.0); HEMOGLOBIN 13.3 g/dl (13.5-17.5); MEAN CORPUSCULAR HEMOGLOBIN 33.8 pg (27.0-33.0); MEAN CORPUSCULAR HGB CONC 33.4 g/dl (32.0-36.5); PLATELET COUNT, AUTOMATED 126 10^3/uL (150-450); RED BLOOD COUNT 3.94 10^6/uL (4.30-6.10)
[2021-05-17 07:44] LABS: ALBUMIN 3.9 GM/DL (3.2-5.2); ALT/SGPT 55 U/L (12-78); BLOOD UREA NITROGEN 23 MG/DL (7-18); CALCIUM LEVEL 8.8 MG/DL (8.8-10.2); CARBON DIOXIDE LEVEL 29 MEQ/L (21-32); CHLORIDE LEVEL 106 MEQ/L (98-107); CHOLESTEROL LEVEL 121 MG/DL (<200); CHOLESTEROL RISK RATIO 2.086 (<5); CREATININE FOR GFR 1.29 MG/DL (0.70-1.30); FREE T3 3.4 PG/ML (2.2-4.0); FREE T4 1.07 NG/DL (0.76-1.46); GLOMERULAR FILTRATION RATE 59.5 (>49); GLUCOSE, FASTING 100 MG/DL (70-100); HDL CHOLESTEROL 58 MG/DL (>40); LDL CHOLESTEROL 43 MG/DL (<100); NON-HDL-C 63 MG/DL; POTASSIUM SERUM 3.8 MEQ/L (3.5-5.1); PROSTATIC SPECIFIC AG MONITOR < 0.01 NG/ML (< 4.00); SODIUM LEVEL 142 MEQ/L (136-145); TOTAL PROTEIN 7.1 GM/DL (6.4-8.2); TRIGLYCERIDES LEVEL 98 MG/DL (<150); URIC ACID 4.5 MG/DL (3.5-7.2)
== END ==
LOC: M LAB 06:28
PROVIDERS: ATTEND Family Medicine
DX: C61 Malignant neoplasm of prostate (principal); I10 Essential (primary) hypertension; M10.9 Gout, unspecified; E03.9 Hypothyroidism, unspecified

== ENCOUNTER → 2021-05-23 | Outpatient (CLI) | payer MEDICARE, BC, OTHER ==
--- NOTE | 2021-05-23 08:52 | REP ---
INDICATION: RUQ PAIN COMPARISON: None. TECHNIQUE: Real time abarca scale ultrasound examination using curved array transducer. FINDINGS: Liver demonstrates diffuse increased echotexture with poor through transmission suggesting fatty infiltration. No focal hepatic lesions are identified. Pancreas is incompletely evaluated due to interposed bowel gas. The gallbladder is normal and without gallstones, wall thickening, or pericholecystic fluid. No biliary ductal dilatation is appreciated and the common bile duct measures 5.0 mm diameter. Right kidney is normal in reniform shape without hydronephrosis and measures 11.1 x 5.7 x 6.2 cm. No ascites in the visualized right upper quadrant. IMPRESSION: Hepatosteatosis. <Electronically signed by Chin Rodriguez > 05/23/21 [id number]
== END ==
LOC: M RAD 06:45
PROVIDERS: ATTEND Family Medicine
DX: R10.11 Right upper quadrant pain (principal); K76.0 Fatty (change of) liver, not elsewhere classified

== ENCOUNTER → 2021-12-04 | Outpatient (CLI) | payer MEDICARE, BC, OTHER | LOC: M PLALAB 15:04 | PROVIDERS: ATTEND Family Medicine | DX: M25.78 Osteophyte, vertebrae (principal); M48.54XA Collapsed vertebra, not elsewhere classified, thoracic region, initial encounter for fracture ==

== ENCOUNTER → 2022-05-03 | Outpatient (CLI) | payer MEDICARE, BC, OTHER ==
[2022-05-03 06:53] LABS: HEMATOCRIT 40.9 % (42.0-52.0); HEMOGLOBIN 13.5 g/dl (13.5-17.5); MEAN CORPUSCULAR HEMOGLOBIN 34.4 pg (27.0-33.0); MEAN CORPUSCULAR VOLUME 104.1 fl (80.0-96.0); PLATELET COUNT, AUTOMATED 134 10^3/uL (150-450); RED BLOOD COUNT 3.93 10^6/uL (4.30-6.10); WHITE BLOOD COUNT 7.1 10^3/uL (4.0-10.0)
[2022-05-03 07:26] LABS: URIC ACID 5.3 MG/DL (3.7-9.2)
[2022-05-03 07:29] LABS: ALBUMIN 3.9 G/DL (3.2-5.2); ALKALINE PHOSPHATASE 53 U/L (46-116); ALT/SGPT 68 U/L (7.0-40); AST/SGOT 37 U/L (<34); BILIRUBIN,TOTAL 1.4 MG/DL (0.3-1.2); BLOOD UREA NITROGEN 27 MG/DL (9-23); CALCIUM LEVEL 8.6 MG/DL (8.3-10.6); CARBON DIOXIDE LEVEL 29 MMOL/L (20-31); CHLORIDE LEVEL 102 MMOL/L (98-107); CHOLESTEROL LEVEL 149 MG/DL (<200); CHOLESTEROL RISK RATIO 2.18 (<5); CREATININE FOR GFR 1.15 MG/DL (0.70-1.30); GLOMERULAR FILTRATION RATE > 60.0 (>49); GLUCOSE, FASTING 112 MG/DL (74-106); HDL CHOLESTEROL 68.1 MG/DL (>40); LDL CHOLESTEROL 67.5 MG/DL (<100); NON-HDL-C 81 MG/DL; POTASSIUM SERUM 4.2 MMOL/L (3.5-5.1); PROSTATIC SPECIFIC AG MONITOR 0.04 NG/ML (< 4.00); SODIUM LEVEL 140 MMOL/L (136-145); TOTAL PROTEIN 6.9 G/DL (5.7-8.2); TRIGLYCERIDES LEVEL 67 MG/DL (<150)
== END ==
LOC: M LAB 06:16
PROVIDERS: ATTEND Family Medicine
DX: I10 Essential (primary) hypertension (principal); M10.9 Gout, unspecified; C61 Malignant neoplasm of prostate

== ENCOUNTER → 2022-08-10 | Outpatient (CLI) | payer MEDICARE, BC, OTHER ==
[2022-08-10 09:14] LABS: PROSTATIC SPECIFIC AG MONITOR 0.04 NG/ML (< 4.00)
[2022-08-10 09:18] LABS: FREE T3 3.8 PG/ML (2.3-4.2); FREE T4 1.22 NG/DL (0.89-1.76); THYROID STIMULATING HORMONE 1.561 uIU/ML (0.55-4.78)
== END ==
LOC: M LAB 08:11
PROVIDERS: ATTEND Family Medicine
DX: C61 Malignant neoplasm of prostate (principal); E03.9 Hypothyroidism, unspecified

== ENCOUNTER 2022-10-03 10:19 | Inpatient (IN) | payer MEDICARE, BC, OTHER ==
[~2022-10-03] VITALS: Ht 182.9 cm; Wt 111.0 kg
[2022-10-03] MEDS: FOLIC ACID 1MG TAB PO SCH (09:00)
[2022-10-03] MEDS: MULTIVITAMINS/MINERALS THERAP 1 TAB PO SCH (09:00)
[2022-10-03] MEDS: DIGOXIN INJ 0.5 MG/2 ML AMP IV SCH (09:00)
[2022-10-03] MEDS: THIAMINE 100 MG TAB PO SCH (09:00)
[~2022-10-03 10:19] MED LIST changes: -ALLO300T2; +ALLO300T2 PO
[2022-10-03] MEDS ORDERED: DIGOXIN INJ 0.5 MG/2 ML AMP IV ONE ×2 (11:20→18:00)
[2022-10-03 11:36] LABS: BASO # 0.1 10^3/uL (0.0-0.2); BASO % 0.7 % (0.0-1.0); EOS # 0.1 10^3/uL (0.0-0.5); EOS % 1.3 % (0.0-3.0); HEMATOCRIT 40.5 % (42.0-52.0); HEMOGLOBIN 14.3 g/dl (13.5-17.5); LYMPH # 1.6 10^3/uL (1.5-5.0); LYMPH % 17.4 % (24.0-44.0); MEAN CORPUSCULAR HEMOGLOBIN 35.9 pg (27.0-33.0); MEAN CORPUSCULAR HGB CONC 35.3 g/dl (32.0-36.5); MEAN CORPUSCULAR VOLUME 101.8 fl (80.0-96.0); MONO # 0.7 10^3/uL (0.0-0.8); MONO % 7.1 % (2.0-8.0); NEUTROPHILS # 6.6 10^3/uL (1.5-8.5); NEUTROPHILS % 72.6 % (36.0-66.0); PLATELET COUNT, AUTOMATED 234 10^3/uL (150-450); RED BLOOD COUNT 3.98 10^6/uL (4.30-6.10); WHITE BLOOD COUNT 9.1 10^3/uL (4.0-10.0)
[2022-10-03 12:01] LABS: LIPASE 98 U/L (12-53)
[2022-10-03 12:08] LABS: ETHYL ALCOHOL (ETHANOL) < 0.003 % (0.000-0.010)
[2022-10-03 12:09] LABS: ALBUMIN 4.3 G/DL (3.2-5.2); ALKALINE PHOSPHATASE 53 U/L (46-116); ALT/SGPT 119 U/L (7.0-40); AST/SGOT 127 U/L (<34); BILIRUBIN,DIRECT 0.8 MG/DL (<0.4); BILIRUBIN,TOTAL 2.6 MG/DL (0.3-1.2); BLOOD UREA NITROGEN 33 MG/DL (9-23); CALCIUM LEVEL 9.3 MG/DL (8.3-10.6); CARBON DIOXIDE LEVEL 24 MMOL/L (20-31); CHLORIDE LEVEL 94 MMOL/L (98-107); CK-MB VALUE MASS 4.4 NG/ML (<3.6); CREATININE FOR GFR 2.15 MG/DL (0.70-1.30); GLOMERULAR FILTRATION RATE 32.9 (>49); GLUCOSE, FASTING 125 MG/DL (74-106); POTASSIUM SERUM 4.6 MMOL/L (3.5-5.1); SODIUM LEVEL 132 MMOL/L (136-145); THYROID STIMULATING HORMONE 3.825 uIU/ML (0.55-4.78); TOTAL PROTEIN 7.1 G/DL (5.7-8.2)
[2022-10-03 12:22] LABS: PROTHROMBIN TIME 13.4 SECONDS (12.5-14.5)
[2022-10-03 12:24] LABS: CPK CREATINE PHOSPHOKINASE 401 U/L (46-171); MB/CK RELATIVE INDEX 1.09 (< OR =4)
[2022-10-03] MEDS ORDERED: MAG SULF 1GM/100ML (MAG RUN) 1 GM in IV 1 EA IV ONE ×2 (12:25→13:30)
[2022-10-03] MEDS ORDERED: DIGOXIN INJ 0.5 MG/2 ML AMP IV STA (12:26)
[2022-10-03] MEDS ORDERED: ONDANSETRON 4MG 2ML VIAL IV ONE (13:55)
[2022-10-03] MEDS ORDERED: APIXABAN 5 MG TAB (ELIQUIS) PO ONE (14:10)
[2022-10-03] MEDS ORDERED: SILD100T PO (15:09)
[2022-10-03] MEDS ORDERED: HOME MED LIST COMPLETE! XX SCH (15:10)
[2022-10-03] MEDS ORDERED: ACETAMINOPHEN TAB 650MG DOSE (2X325MG) PO PRN (15:40)
[2022-10-03 16:37] LABS: PHOSPHORUS LEVEL 3.3 MG/DL (2.4-5.1)
[2022-10-03] MEDS ORDERED: LORazepam 2 MG TAB PO PRN (16:50)
[2022-10-03] MEDS: NS 1,000 ML IV SCH (16:59)
[2022-10-03] MEDS: MAG SULF 1GM/100ML (MAG RUN) 1 GM in IV 1 EA IV SCH ×4 (17:35→22:14)
[2022-10-03 17:58] LABS: CALCIUM LEVEL 8.7 MG/DL (8.3-10.6); CREATININE FOR GFR 2.07 MG/DL (0.70-1.30); GLOMERULAR FILTRATION RATE 34.4 (>49); MAGNESIUM LEVEL 1.6 MG/DL (1.8-2.4); POTASSIUM SERUM 4.2 MMOL/L (3.5-5.1)
[2022-10-03 18:02] LABS: VITAMIN B12 LEVEL 891 PG/ML (211-911)
[2022-10-03 18:03] LABS: FOLATE 13.44 NG/ML (>5.4)
[2022-10-03 18:20] LABS: HEPATITIS B SURFACE ANTIGEN NEGATIVE (NEGATIVE)
[2022-10-03 18:41] LABS: HEPATITIS B CORE ANTIBODY IGM NEGATIVE (NEGATIVE)
[2022-10-03 20:08] LABS: INR 1.12; PROTHROMBIN TIME 14.6 SECONDS (12.5-14.5)
[2022-10-03 20:09] LABS: PARTIAL THROMBOPLASTIN TIME 28.4 SECONDS (24.8-34.2)
[2022-10-03 20:30] VITALS: BP 98/59
[2022-10-03] MEDS: APIXABAN 5 MG TAB (ELIQUIS) PO SCH (20:51)
[2022-10-03] MEDS: PRAVASTATIN 20 MG TAB PO SCH (20:51)
[2022-10-03] MEDS ORDERED: RAMELTEON 8 MG TAB (ROZEREM) PO ONE (21:05)
[2022-10-04] VITALS (9 sets, daily range): BP systolic 98–142; BP diastolic 55–76
[2022-10-04] MEDS: NS 1,000 ML IV SCH ×3 (04:47→18:47)
[2022-10-04] MEDS: LEVOTHYROXINE 75MCG TABLET (0.075MG) PO SCH (06:29)
[2022-10-04 06:33] LABS: HEMATOCRIT 35.3 % (42.0-52.0); MEAN CORPUSCULAR HEMOGLOBIN 34.9 pg (27.0-33.0); MEAN CORPUSCULAR VOLUME 102.6 fl (80.0-96.0); PLATELET COUNT, AUTOMATED 156 10^3/uL (150-450); RED BLOOD COUNT 3.44 10^6/uL (4.30-6.10); WHITE BLOOD COUNT 5.9 10^3/uL (4.0-10.0)
[2022-10-04 06:50] LABS: CALCIUM LEVEL 7.9 MG/DL (8.3-10.6); GLOMERULAR FILTRATION RATE 35.8 (>49); POTASSIUM SERUM 4.2 MMOL/L (3.5-5.1)
[2022-10-04] MEDS: ASCORBIC ACID 500 MG TAB PO SCH (08:41)
[2022-10-04] MEDS: THIAMINE 100 MG TAB PO SCH (08:41)
[2022-10-04] MEDS: FOLIC ACID 1MG TAB PO SCH (08:41)
[2022-10-04] MEDS: DIGOXIN INJ 0.5 MG/2 ML AMP IV SCH (08:41)
[2022-10-04] MEDS: MULTIVITAMINS/MINERALS THERAP 1 TAB PO SCH (08:42)
[2022-10-04] MEDS: APIXABAN 5 MG TAB (ELIQUIS) PO SCH ×2 (08:42→20:50)
[2022-10-04] MEDS ORDERED: allopurinoL 300 MG TAB PO SCH (09:00)
[2022-10-04] MEDS: METOPROLOL TART 12.5 MG PER 1/2 TAB PO SCH ×2 (12:47→20:17)
[2022-10-04] MEDS: PRAVASTATIN 20 MG TAB PO SCH (17:19)
[2022-10-04 20:31] LABS: HEMATOCRIT 33.8 % (42.0-52.0); HEMOGLOBIN 11.4 g/dl (13.5-17.5)
[2022-10-05] MEDS: METOPROLOL TART 12.5 MG PER 1/2 TAB PO SCH ×2 (01:01→08:11)
[2022-10-05 03:33] VITALS: BP 106/68
[2022-10-05] MEDS: LEVOTHYROXINE 75MCG TABLET (0.075MG) PO SCH (05:45)
[2022-10-05 06:38] LABS: HEMATOCRIT 34.2 % (42.0-52.0); HEMOGLOBIN 11.5 g/dl (13.5-17.5); MEAN CORPUSCULAR HEMOGLOBIN 34.8 pg (27.0-33.0); MEAN CORPUSCULAR HGB CONC 33.6 g/dl (32.0-36.5); MEAN CORPUSCULAR VOLUME 103.6 fl (80.0-96.0); PLATELET COUNT, AUTOMATED 136 10^3/uL (150-450); WHITE BLOOD COUNT 4.7 10^3/uL (4.0-10.0)
[2022-10-05 07:14] LABS: BLOOD UREA NITROGEN 36 MG/DL (9-23); CALCIUM LEVEL 8.2 MG/DL (8.3-10.6); CARBON DIOXIDE LEVEL 24 MMOL/L (20-31); CHLORIDE LEVEL 105 MMOL/L (98-107); CREATININE FOR GFR 1.26 MG/DL (0.70-1.30); GLOMERULAR FILTRATION RATE > 60.0 (>49); GLUCOSE, FASTING 115 MG/DL (74-106); MAGNESIUM LEVEL 1.4 MG/DL (1.8-2.4); POTASSIUM SERUM 4.5 MMOL/L (3.5-5.1); SODIUM LEVEL 136 MMOL/L (136-145)
[2022-10-05 07:24] VITALS: BP 115/66
[2022-10-05] MEDS: MULTIVITAMINS/MINERALS THERAP 1 TAB PO SCH (08:10)
[2022-10-05] MEDS: ASCORBIC ACID 500 MG TAB PO SCH (08:10)
[2022-10-05] MEDS: THIAMINE 100 MG TAB PO SCH (08:10)
[2022-10-05 08:11] VITALS: BP 115/66
[2022-10-05] MEDS: FOLIC ACID 1MG TAB PO SCH (08:11)
[2022-10-05] MEDS: DIGOXIN INJ 0.5 MG/2 ML AMP IV SCH (08:11)
[2022-10-05] MEDS: APIXABAN 5 MG TAB (ELIQUIS) PO SCH (08:11)
[2022-10-05] MEDS ORDERED: MAGNESIUM OXIDE 400MG TAB (MAG-OX) PO SCH (09:00)
[2022-10-05] MEDS ORDERED: METO1TAB87 PO (10:27)
[2022-10-05] MEDS ORDERED: ELIQ5TAB PO (10:27)
[2022-10-05] MEDS ORDERED: MAGN400T2 PO (10:27)
== END 2022-10-05 12:00 | disposition home or self-care (01) | DRG 683 ==
LOC: M ED 10:19 → M ED INP 15:44 → M PCU 20:00
PROVIDERS: ADMIT Student in an Organized Health Care Education/Training Program; ATTEND Student in an Organized Health Care Education/Training Program
DX: N17.9 Acute kidney failure, unspecified (principal); E87.1 Hypo-osmolality and hyponatremia; M87.9 Osteonecrosis, unspecified; M87.052 Idiopathic aseptic necrosis of left femur; I48.91 Unspecified atrial fibrillation; E03.9 Hypothyroidism, unspecified; I10 Essential (primary) hypertension; K76.0 Fatty (change of) liver, not elsewhere classified; F10.10 Alcohol abuse, uncomplicated; E78.5 Hyperlipidemia, unspecified; R94.5 Abnormal results of liver function studies; M10.9 Gout, unspecified; E83.42 Hypomagnesemia; Z85.46 Personal history of malignant neoplasm of prostate; Z88.2 Allergy status to sulfonamides; Z79.899 Other long term (current) drug therapy; Z88.8 Allergy status to other drugs, medicaments and biological substances; Z88.5 Allergy status to narcotic agent

== ENCOUNTER → 2022-12-06 | Outpatient (REF) | payer MEDICARE, BC, OTHER ==
[~2022-12-06] MED LIST changes: +ELIQ5TAB PO; +MAGN400T2 PO; +METO1TAB87 PO; +SILD100T PO
== END ==
LOC: M LAB REF 16:16
PROVIDERS: ATTEND Nurse Practitioner Family
DX: L03.031 Cellulitis of right toe (principal)

== ENCOUNTER → 2023-01-03 | Outpatient (CLI) | payer MEDICARE, BC, OTHER | LOC: M WUC 14:11 | PROVIDERS: ATTEND Nurse Practitioner Family | DX: L03.031 Cellulitis of right toe (principal); M89.9 Disorder of bone, unspecified; M19.071 Primary osteoarthritis, right ankle and foot ==

== ENCOUNTER 2023-01-24 15:48 | Emergency (ER) | payer MEDICARE, BC, OTHER ==
[~2023-01-24] VITALS: Ht 182.9 cm; Wt 104.5 kg
[~2023-01-24 15:48] MED LIST changes: +CEPH500C PO; +EQL50TAB2 PO
[2023-01-24 15:55] VITALS: BP 141/83; TEMP 98.7; O2SAT 98
== END 2023-01-24 16:42 | disposition left against medical advice (07) ==
LOC: M ED 15:48 → EDBD 15:48 → M ED 16:42
DX: Z53.21 Procedure and treatment not carried out due to patient leaving prior to being seen by health care provider (principal)

== ENCOUNTER 2023-01-28 00:04 | Emergency (ER) | payer MEDICARE, BC, OTHER ==
[~2023-01-28] VITALS: Ht 182.9 cm; Wt 101.8 kg
[2023-01-28 00:04] VITALS: TEMP 96.5
[2023-01-28 00:55] LABS: BASO % 0.3 % (0.0-1.0); EOS # 0.2 10^3/uL (0.0-0.5); EOS % 1.9 % (0.0-3.0); HEMATOCRIT 37.7 % (42.0-52.0); HEMOGLOBIN 12.9 g/dl (13.5-17.5); LYMPH # 1.8 10^3/uL (1.5-5.0); LYMPH % 21.2 % (24.0-44.0); MEAN CORPUSCULAR HEMOGLOBIN 34.5 pg (27.0-33.0); MEAN CORPUSCULAR HGB CONC 34.2 g/dl (32.0-36.5); MEAN CORPUSCULAR VOLUME 100.8 fl (80.0-96.0); MONO # 0.6 10^3/uL (0.0-0.8); MONO % 7.3 % (2.0-8.0); NEUTROPHILS # 5.9 10^3/uL (1.5-8.5); NEUTROPHILS % 68.8 % (36.0-66.0); PLATELET COUNT, AUTOMATED 158 10^3/uL (150-450); RED BLOOD COUNT 3.74 10^6/uL (4.30-6.10); WHITE BLOOD COUNT 8.6 10^3/uL (4.0-10.0)
[2023-01-28 00:58] LABS: ALBUMIN 3.7 G/DL (3.2-5.2); BILIRUBIN,DIRECT 0.4 MG/DL (<0.4); BILIRUBIN,TOTAL 0.9 MG/DL (0.3-1.2); CK-MB VALUE MASS 2.6 NG/ML (<3.6); MB/CK RELATIVE INDEX 0.76 (< OR =4); TOTAL PROTEIN 6.7 G/DL (5.7-8.2)
[2023-01-28 01:20] LABS: INR 1.36; PROTHROMBIN TIME 16.4 SECONDS (12.5-14.5)
[2023-01-28] MEDS ORDERED: PANTOPRAZOLE 40MG VIAL IV ONE (05:45)
[2023-01-28] MEDS ORDERED: PROT1TAB2 PO (05:48)
[2023-01-28 06:31] LABS: CALCIUM LEVEL 8.8 MG/DL (8.3-10.6); CREATININE FOR GFR 1.58 MG/DL (0.70-1.30); GLOMERULAR FILTRATION RATE 46.8 (>49); POTASSIUM SERUM 3.8 MMOL/L (3.5-5.1)
[2023-01-28 06:32] VITALS: BP 132/78
[2023-01-28] MEDS ORDERED: ISOVUE-370 76% 100ML VIAL As Ordered ONE (06:35)
[2023-01-28 08:19] VITALS: O2SAT 82
== END 2023-01-28 08:27 | disposition home or self-care (01) ==
LOC: M ED 00:04
DX: R06.6 Hiccough (principal); F41.9 Anxiety disorder, unspecified; E78.5 Hyperlipidemia, unspecified; I10 Essential (primary) hypertension; F17.200 Nicotine dependence, unspecified, uncomplicated; Z79.01 Long term (current) use of anticoagulants; Z88.2 Allergy status to sulfonamides; Z88.1 Allergy status to other antibiotic agents; Z79.899 Other long term (current) drug therapy; Z79.811 Long term (current) use of aromatase inhibitors
CPT/HCPCS: 71045; 71260; 74177; 80048; 80076; 82550; 82553; 83690; 84484; 85025; 85610; 93005; 93041; 94760; 96374; 99284; C9113; Q9967

== ENCOUNTER → 2023-02-07 | Outpatient (CLI) | payer MEDICARE, BC, OTHER ==
[~2023-02-07] MED LIST changes: +PROT1TAB2 PO
[2023-02-07 07:33] LABS: ALBUMIN 3.9 G/DL (3.2-5.2); ALKALINE PHOSPHATASE 54 U/L (46-116); ALT/SGPT 133 U/L (7.0-40); AST/SGOT 68 U/L (<34); BILIRUBIN,DIRECT 0.2 MG/DL (<0.4); BILIRUBIN,TOTAL 0.4 MG/DL (0.3-1.2); HEPATITIS B SURFACE ANTIBODY NEGATIVE (POSITIVE); IRON (FE) 76 UG/DL (65-175); TOTAL IRON BINDING CAPACITY 282 UG/DL (250-425); TOTAL PROTEIN 6.7 G/DL (5.7-8.2)
[2023-02-07 07:34] LABS: FERRITIN 1413.9 NG/ML (10.5-307.3)
[2023-02-07 08:06] LABS: HEPATITIS C VIRUS ABY INDEX 0.13 INDEX (<0.8)
== END ==
LOC: M LAB 06:21
PROVIDERS: ATTEND Family Medicine
DX: R74.02 Elevation of levels of lactic acid dehydrogenase [LDH] (principal)

== ENCOUNTER 2023-02-28 10:14 | Day surgery (SDC) | payer MEDICARE, BC, OTHER ==
[~2023-02-28] VITALS: Ht 182.9 cm; Wt 101.4 kg
[~2023-02-28 10:14] MED LIST changes: +NS 1,000 ML IV ONE
[2023-02-28 12:32] VITALS: BP 124/79; O2SAT 98
== END 2023-02-28 12:38 | disposition home or self-care (01) ==
LOC: M OPP 10:14
PROVIDERS: ATTEND Surgery
DX: K64.1 Second degree hemorrhoids (principal); K57.30 Diverticulosis of large intestine without perforation or abscess without bleeding; K92.1 Melena; I48.91 Unspecified atrial fibrillation; Z79.01 Long term (current) use of anticoagulants; Z79.02 Long term (current) use of antithrombotics/antiplatelets; Z79.1 Long term (current) use of non-steroidal anti-inflammatories (NSAID); Z79.52 Long term (current) use of systemic steroids; Z79.890 Hormone replacement therapy; Z79.899 Other long term (current) drug therapy; Z88.1 Allergy status to other antibiotic agents; Z88.2 Allergy status to sulfonamides

== ENCOUNTER 2023-04-03 15:09 | Observation (INO) | payer MEDICARE, BC, OTHER ==
[~2023-04-03] VITALS: Ht 182.9 cm; Wt 100.1 kg
[~2023-04-03 15:09] MED LIST changes: -NS 1,000 ML IV ONE
[2023-04-03 16:17] LABS: BASO % 0.6 % (0.0-1.0); EOS # 0.1 10^3/uL (0.0-0.5); EOS % 2.2 % (0.0-3.0); HEMATOCRIT 37.2 % (42.0-52.0); LYMPH # 1.1 10^3/uL (1.5-5.0); LYMPH % 18.1 % (24.0-44.0); MEAN CORPUSCULAR HGB CONC 34.9 g/dl (32.0-36.5); MEAN CORPUSCULAR VOLUME 100.3 fl (80.0-96.0); MONO # 0.5 10^3/uL (0.0-0.8); MONO % 8.6 % (2.0-8.0); NEUTROPHILS # 4.4 10^3/uL (1.5-8.5); NEUTROPHILS % 69.9 % (36.0-66.0); PLATELET COUNT, AUTOMATED 153 10^3/uL (150-450); RED BLOOD COUNT 3.71 10^6/uL (4.30-6.10); WHITE BLOOD COUNT 6.3 10^3/uL (4.0-10.0)
[2023-04-03 16:28] LABS: INR 1.16; PROTHROMBIN TIME 14.5 SECONDS (12.5-14.5)
[2023-04-03 16:48] LABS: ETHYL ALCOHOL (ETHANOL) 0.013 % (0.000-0.010)
[2023-04-03 16:51] LABS: THYROID STIMULATING HORMONE 1.662 uIU/ML (0.55-4.78)
[2023-04-03 16:59] LABS: ALBUMIN 3.8 G/DL (3.2-5.2); ALKALINE PHOSPHATASE 40 U/L (46-116); ALT/SGPT 108 U/L (7.0-40); AST/SGOT 161 U/L (<34); BILIRUBIN,DIRECT 0.3 MG/DL (<0.4); BILIRUBIN,TOTAL 0.9 MG/DL (0.3-1.2); BLOOD UREA NITROGEN 24 MG/DL (9-23); CALCIUM LEVEL 9.6 MG/DL (8.3-10.6); CARBON DIOXIDE LEVEL 28 MMOL/L (20-31); CHLORIDE LEVEL 94 MMOL/L (98-107); CK-MB VALUE MASS 1.7 NG/ML (<3.6); CPK CREATINE PHOSPHOKINASE 268 U/L (46-171); CREATININE FOR GFR 1.11 MG/DL (0.70-1.30); FREE T3 3.5 PG/ML (2.3-4.2); GLOMERULAR FILTRATION RATE > 60.0 (>49); GLUCOSE, FASTING 135 MG/DL (74-106); LIPASE 134 U/L (12-53); MB/CK RELATIVE INDEX 0.63 (< OR =4); POTASSIUM SERUM 5.9 MMOL/L (3.5-5.1); SODIUM LEVEL 131 MMOL/L (136-145); TOTAL PROTEIN 7.4 G/DL (5.7-8.2)
[2023-04-03] MEDS ORDERED: MAG SULF 1GM/100ML (MAG RUN) 1 GM in IV 1 EA IV ONE ×2 (17:15→18:35)
[2023-04-03] MEDS ORDERED: LORazepam 2 MG TAB PO STA (18:33)
[2023-04-03] MEDS ORDERED: LORazepam 1 MG TAB PO STA (18:43)
[2023-04-03 18:47] LABS: BLOOD UREA NITROGEN 23 MG/DL (9-23); CALCIUM LEVEL 9.7 MG/DL (8.3-10.6); CARBON DIOXIDE LEVEL 30 MMOL/L (20-31); CHLORIDE LEVEL 94 MMOL/L (98-107); CREATININE FOR GFR 1.17 MG/DL (0.70-1.30); GLOMERULAR FILTRATION RATE > 60.0 (>49); GLUCOSE, FASTING 122 MG/DL (74-106); POTASSIUM SERUM 3.8 MMOL/L (3.5-5.1); SODIUM LEVEL 134 MMOL/L (136-145)
[2023-04-03 21:32] LABS: AMPHETAMINES LEVEL URINE NEGATIVE (NEGATIVE); BARBITURATES URINE NEGATIVE (NEGATIVE); BENZODIAZEPINES URINE NEGATIVE (NEGATIVE); CANNABINOIDS URINE NEGATIVE (NEGATIVE); COCAINE METABOLITE URINE NEGATIVE (NEGATIVE); METHADONE URINE NEGATIVE (NEGATIVE); OPIATES URINE NEGATIVE (NEGATIVE); PHENCYCLIDINE URINE NEGATIVE (NEGATIVE)
[2023-04-03] MEDS ORDERED: LORazepam 1 MG TAB PO PRN (21:35)
[2023-04-03 21:43] LABS: RSV AMPLIFICATION NEGATIVE (NEGATIVE)
[2023-04-03] MEDS: THIAMINE 100 MG TAB PO SCH (22:19)
[2023-04-03] MEDS ORDERED: ELIQ5TAB PO (23:04)
[2023-04-03] MEDS ORDERED: MAGN400T2 PO (23:05)
[2023-04-03] MEDS ORDERED: HOME MED LIST COMPLETE! XX SCH (23:05)
[2023-04-03] MEDS ORDERED: UNIS25TA3 PO (23:05)
[2023-04-03 23:54] VITALS: BP 115/76; TEMP 98; O2SAT 97
[2023-04-04 00:06] VITALS: BP 115/76
[2023-04-04] MEDS ORDERED: METOPROLOL TART 25 MG TABLET PO ONE (02:15)
[2023-04-04] MEDS ORDERED: RAMELTEON 8 MG TAB (ROZEREM) PO PRN (02:20)
[2023-04-04 06:00] VITALS: BP 108/68; TEMP 97.4; O2SAT 94
[2023-04-04] MEDS ORDERED: LEVOTHYROXINE 75MCG TABLET (0.075MG) PO SCH (06:00)
[2023-04-04 06:16] LABS: CALCIUM LEVEL 9.4 MG/DL (8.3-10.6); CREATININE FOR GFR 1.59 MG/DL (0.70-1.30); GLOMERULAR FILTRATION RATE 46.5 (>49); MAGNESIUM LEVEL 1.2 MG/DL (1.8-2.4); POTASSIUM SERUM 3.6 MMOL/L (3.5-5.1)
[2023-04-04] MEDS ORDERED: LR 1,000 ML IV SCH (06:45)
[2023-04-04] MEDS ORDERED: LR 1,000 ML IV ONE (06:45)
[2023-04-04] MEDS: MAG SULF 1GM/100ML (MAG RUN) 1 GM in IV 1 EA IV SCH ×3 (07:53→10:08)
[2023-04-04] MEDS: THIAMINE 100 MG TAB PO SCH (08:20)
[2023-04-04 08:23] VITALS: BP 94/58
[2023-04-04 09:00] VITALS: BP 94/58
[2023-04-04] MEDS ORDERED: METOPROLOL TART 25 MG TABLET PO SCH (09:00)
[2023-04-04] MEDS ORDERED: MULTIVITAMINS/MINERALS THERAP 1 TAB PO SCH (09:00)
[2023-04-04] MEDS ORDERED: FOLIC ACID 1MG TAB PO SCH (09:00)
[2023-04-04] MEDS ORDERED: MAGNESIUM OXIDE 400MG TAB (MAG-OX) PO SCH (09:00)
[2023-04-04 12:48] LABS: ALBUMIN 3.5 G/DL (3.2-5.2); BILIRUBIN,DIRECT 0.3 MG/DL (<0.4); BILIRUBIN,TOTAL 0.8 MG/DL (0.3-1.2); CALCIUM LEVEL 9.2 MG/DL (8.3-10.6); CREATININE FOR GFR 1.32 MG/DL (0.70-1.30); GLOMERULAR FILTRATION RATE 57.6 (>49); MAGNESIUM LEVEL 2.1 MG/DL (1.8-2.4); POTASSIUM SERUM 3.7 MMOL/L (3.5-5.1); TOTAL PROTEIN 6.1 G/DL (5.7-8.2)
[2023-04-04 13:53] LABS: HEMOGLOBIN 11.3 g/dl (13.5-17.5)
[2023-04-04 14:00] VITALS: BP 122/61; TEMP 97.6; O2SAT 93
[2023-04-04 14:46] VITALS: BP 122/61
[2023-04-04] MEDS ORDERED: SUCR1TA PO (15:01)
[2023-04-04] MEDS ORDERED: PROT1TAB2 PO (15:01)
[2023-04-04] MEDS ORDERED: FOLI1TAB11 PO (15:01)
[2023-04-04] MEDS ORDERED: allopurinoL 300 MG TAB PO SCH (21:00)
[2023-04-04] MEDS ORDERED: PRAVASTATIN 20 MG TAB PO SCH (21:00)
== END 2023-04-04 16:50 | disposition home or self-care (01) ==
LOC: M ED 15:09 → M ED INP 20:01 → EEVIPCON 20:01 → ENRESERV 22:42 → M MS4PR 23:40
PROVIDERS: ADMIT Internal Medicine; ATTEND Internal Medicine
DX: F10.20 Alcohol dependence, uncomplicated (principal); I48.91 Unspecified atrial fibrillation; K62.5 Hemorrhage of anus and rectum; K70.9 Alcoholic liver disease, unspecified; E83.42 Hypomagnesemia; N17.9 Acute kidney failure, unspecified; I10 Essential (primary) hypertension; E03.9 Hypothyroidism, unspecified; Z79.01 Long term (current) use of anticoagulants; Z79.899 Other long term (current) drug therapy; Z88.2 Allergy status to sulfonamides; Z88.1 Allergy status to other antibiotic agents
CPT/HCPCS: 36415; 80048; 80076; 80307; 82077; 82550; 82553; 83690; 83735; 84443; 84481; 84484; 85014; 85018; 85025; 85610; 87631; 87641; 93005; 96361; 96374; 99285; G0378; J3475

== ENCOUNTER 2023-05-19 11:18 | Emergency (ER) | payer MEDICARE, BC, OTHER ==
[~2023-05-19] VITALS: Ht 182.9 cm; Wt 101.5 kg
[~2023-05-19 11:18] MED LIST changes: +FOLI1TAB11 PO; +SUCR1TA PO; +UNIS25TA3 PO
[2023-05-19] MEDS ORDERED: ISOVUE-370 76% 100ML VIAL As Ordered ONE (12:55)
[2023-05-19 12:59] LABS: HEMATOCRIT 41.2 % (42.0-52.0); HEMOGLOBIN 13.8 g/dl (13.5-17.5); MEAN CORPUSCULAR HEMOGLOBIN 35.6 pg (27.0-33.0); MEAN CORPUSCULAR HGB CONC 33.5 g/dl (32.0-36.5); MEAN CORPUSCULAR VOLUME 106.2 fl (80.0-96.0); PLATELET COUNT, AUTOMATED 216 10^3/uL (150-450); RED BLOOD COUNT 3.88 10^6/uL (4.30-6.10); WHITE BLOOD COUNT 10.2 10^3/uL (4.0-10.0)
[2023-05-19] MEDS ORDERED: dexAMETHasone 20MG/5ML VIAL IV ONE (14:25)
[2023-05-19] MEDS ORDERED: AUGMENTIN 875 MG TAB PO ONE ×2 (14:50)
[2023-05-19 14:55] VITALS: BP 154/92; TEMP 98; O2SAT 97
[2023-05-19] MEDS ORDERED: AMOX875T2 PO (14:56)
[2023-05-19] MEDS ORDERED: MEDR4PAK PO (14:56)
== END 2023-05-19 15:09 | disposition home or self-care (01) ==
LOC: M ED 11:18
DX: J36 Peritonsillar abscess (principal); I10 Essential (primary) hypertension; E03.9 Hypothyroidism, unspecified; F10.10 Alcohol abuse, uncomplicated; Z88.2 Allergy status to sulfonamides; Z88.1 Allergy status to other antibiotic agents; Z88.8 Allergy status to other drugs, medicaments and biological substances; Z79.811 Long term (current) use of aromatase inhibitors; Z79.01 Long term (current) use of anticoagulants; Z79.899 Other long term (current) drug therapy
CPT/HCPCS: 70491; 80047; 85027; 87880; 96374; 99283; J1100; Q9967

== ENCOUNTER 2023-09-15 13:03 | Emergency (ER) | payer MEDICARE, BC ==
[~2023-09-15] VITALS: Ht 182.9 cm; Wt 104.5 kg
[~2023-09-15 13:03] MED LIST changes: +AMOX875T2 PO; +MEDR4PAK PO
[2023-09-15 13:04] VITALS: TEMP 97.9
[2023-09-15 15:22] LABS: BASO % 0.4 % (0.0-1.0); EOS # 0.2 10^3/uL (0.0-0.5); HEMATOCRIT 41.4 % (42.0-52.0); LYMPH # 1.6 10^3/uL (1.5-5.0); LYMPH % 21.4 % (24.0-44.0); MEAN CORPUSCULAR HGB CONC 33.8 g/dl (32.0-36.5); MEAN CORPUSCULAR VOLUME 97.6 fl (80.0-96.0); MONO # 0.8 10^3/uL (0.0-0.8); MONO % 9.8 % (2.0-8.0); NEUTROPHILS # 5.1 10^3/uL (1.5-8.5); NEUTROPHILS % 66.1 % (36.0-66.0); PLATELET COUNT, AUTOMATED 134 10^3/uL (150-450); RED BLOOD COUNT 4.24 10^6/uL (4.30-6.10); WHITE BLOOD COUNT 7.7 10^3/uL (4.0-10.0)
[2023-09-15] MEDS: ONDANSETRON 4MG 2ML VIAL IV ONE (15:45)
[2023-09-15] MEDS: KETOROLAC 30 MG/ML 1ML VIAL IV ONE (15:45)
[2023-09-15 15:52] LABS: ALBUMIN 3.1 G/DL (3.2-5.2); BILIRUBIN,DIRECT 0.4 MG/DL (<0.4); BILIRUBIN,TOTAL 0.9 MG/DL (0.3-1.2); TOTAL PROTEIN 6.1 G/DL (5.7-8.2)
[2023-09-15 15:59] LABS: ETHYL ALCOHOL (ETHANOL) 0.014 % (0.000-0.010)
[2023-09-15 16:15] VITALS: BP 203/91; O2SAT 99
[2023-09-15] MEDS ORDERED: TRAM50TA2 PO (17:03)
== END 2023-09-15 17:21 | disposition home or self-care (01) ==
LOC: M ED 13:03
DX: R10.12 Left upper quadrant pain (principal); R11.0 Nausea; I10 Essential (primary) hypertension; F17.210 Nicotine dependence, cigarettes, uncomplicated; F10.10 Alcohol abuse, uncomplicated; Z88.2 Allergy status to sulfonamides; Z88.1 Allergy status to other antibiotic agents; Z88.8 Allergy status to other drugs, medicaments and biological substances; Z79.2 Long term (current) use of antibiotics; Z79.899 Other long term (current) drug therapy

== ENCOUNTER → 2024-05-17 | Outpatient (CLI) | payer MEDICARE, BC ==
[~2024-05-17] MED LIST changes: +TRAM50TA2 PO
[2024-05-17 18:25] LABS: BLOOD UREA NITROGEN 23 MG/DL (9-23); CALCIUM LEVEL 10.6 MG/DL (8.3-10.6); CARBON DIOXIDE LEVEL 30 MMOL/L (20-31); CHLORIDE LEVEL 102 MMOL/L (98-107); GLOMERULAR FILTRATION RATE > 60.0 (>49); GLUCOSE, FASTING 136 MG/DL (74-106); MAGNESIUM LEVEL 1.5 MG/DL (1.8-2.4); POTASSIUM SERUM 4.4 MMOL/L (3.5-5.1); SODIUM LEVEL 140 MMOL/L (136-145)
[2024-05-17 18:33] LABS: FREE T3 4.2 PG/ML (2.3-4.2)
[2024-05-17 18:34] LABS: FREE T4 1.39 NG/DL (0.89-1.76); THYROID STIMULATING HORMONE 0.622 uIU/ML (0.55-4.78)
== END ==
LOC: M PLALAB 15:41
PROVIDERS: ATTEND Family Medicine
DX: E83.42 Hypomagnesemia (principal); Z79.899 Other long term (current) drug therapy

== ENCOUNTER → 2024-07-05 | Outpatient (CLI) | payer MEDICARE, BC | LOC: M EKG 13:24 | PROVIDERS: ATTEND Family Medicine | DX: I48.91 Unspecified atrial fibrillation (principal) ==

== ENCOUNTER 2024-12-30 10:35 | Day surgery (SDC) | payer MEDICARE, BC ==
[~2024-12-30] VITALS: Ht 182.9 cm; Wt 91.4 kg
[~2024-12-30 10:35] MED LIST changes: +ACAM0.05 PO; -EQL50TAB2 PO; +IBUP-1114 PO; +LOSA50TA28 PO; +METO25TA4 PO; +OMEP40CA5 PO; -PRAV40TA2 PO; +PRAV40TA85 PO; +TRAZ1TAB10 PO; +VITA1TAB82 PO
[2024-12-30] MEDS ORDERED: ROCURONIUM BROMIDE 50MG/5ML VIAL As Ordered ONE (11:14)
[2024-12-30] MEDS ORDERED: dexAMETHasone 4 MG/ML 1 ML VIAL As Ordered ONE (11:14)
[2024-12-30] MEDS ORDERED: LIDOCAINE 2% 100 MG/5 ML SDV (FOR ANES.) As Ordered ONE (11:14)
[2024-12-30] MEDS ORDERED: ONDANSETRON 4MG 2ML VIAL As Ordered ONE (11:14)
[2024-12-30] MEDS ORDERED: MIDAZOLAM INJ 2 MG/2 ML VIAL As Ordered ONE (11:14)
[2024-12-30] MEDS ORDERED: ACETAMINOPHEN 1000MG/100ML IV BAG As Ordered ONE (11:23)
[2024-12-30] MEDS: LR 1,000 ML IV SCH (11:25)
[2024-12-30] MEDS: ceFAZolin SOD 2 GM IV ONCE IV ONE (12:40)
[2024-12-30] MEDS ORDERED: SUGAMMADEX SODIUM 500 MG/5 ML VIAL As Ordered ONE (12:51)
[2024-12-30] MEDS ORDERED: KETOROLAC 30 MG/ML 1 ML VIAL As Ordered ONE (12:52)
[2024-12-30] MEDS ORDERED: GLYCOPYRROLATE INJ 0.2 MG/ML 2 ML VIAL As Ordered ONE (14:02)
[2024-12-30] MEDS ORDERED: LR 1,000 ML IV SCH (14:15)
[2024-12-30] MEDS ORDERED: HYDROMORPHONE HCL 0.5 MG/0.5 ML SYRINGE IV PRN (14:15)
[2024-12-30] MEDS ORDERED: ONDANSETRON 4MG 2ML VIAL IV PRN (14:15)
[2024-12-30 15:45] VITALS: BP 140/75; TEMP 97.1; O2SAT 98
== END 2024-12-30 15:47 | disposition home or self-care (01) ==
LOC: M SDC 10:35
PROVIDERS: ATTEND Surgery
DX: K40.30 Unilateral inguinal hernia, with obstruction, without gangrene, not specified as recurrent (principal); I10 Essential (primary) hypertension; E03.9 Hypothyroidism, unspecified; E78.00 Pure hypercholesterolemia, unspecified; M10.9 Gout, unspecified; Z79.899 Other long term (current) drug therapy; Z79.890 Hormone replacement therapy; Z90.49 Acquired absence of other specified parts of digestive tract; Z88.2 Allergy status to sulfonamides; Z88.1 Allergy status to other antibiotic agents; Z88.8 Allergy status to other drugs, medicaments and biological substances; Z90.89 Acquired absence of other organs
CPT/HCPCS: 49650; C1781; J0131; J0665; J0690; J1100; J1596; J1885; J2250; J2405; J3010